=== PATIENT | female | born 1985 | race Caucasian/White ===

== ENCOUNTER 2018-02-11 21:08 | Emergency (ER) | payer OTHER ==
[~2018-02-11] VITALS: Ht 157.5 cm; Wt 94.2 kg
[~2018-02-11 21:08] MED LIST: ANTIDEPRESSANT; AUGMENTIN875 MG PO; CYMBALTA30 MG PO; FIORICET,ESG1 TABLET PO; FISH OIL SOFTG1 EACH PO; MOTRIN600 MG PO; OCELLA TABLET1 EACH PO; PERCOCET 5/31 TABLET PO; PRISTIQ50 MG PO; TOPAMAX100 MG PO; VICODIN ES 71 TABLET PO; ZOFRAN ODT4 MG PO
[2018-02-11] MEDS ORDERED: DICLOXACILLIN250 MG PO (22:19)
[2018-02-11] MEDS ORDERED: NORCO 5/3251 TABLET PO (22:19)
[2018-02-11 22:44] VITALS: BP 128/83
== END 2018-02-11 23:07 | disposition home or self-care (01) ==
LOC: EME 21:08 → EXP 21:08
DX: L03.032 Cellulitis of left toe (principal); J30.9 Allergic rhinitis, unspecified; Z91.040 Latex allergy status; Z88.1 Allergy status to other antibiotic agents; Z91.018 Allergy to other foods
CPT/HCPCS: 99281; 99283

== ENCOUNTER 2018-03-22 22:02 | Emergency (ER) | payer OTHER ==
[~2018-03-22] VITALS: Ht 157.5 cm; Wt 97.1 kg
[~2018-03-22 22:02] MED LIST changes: +DICLOXACILLIN250 MG PO; +NORCO 5/3251 TABLET PO
[2018-03-22] MEDS ORDERED: MOTRIN800 MG PO (23:16)
[2018-03-22] MEDS ORDERED: VIBRAMYCIN100 MG PO (23:16)
[2018-03-22 23:54] VITALS: BP 134/80
== END 2018-03-22 23:55 | disposition home or self-care (01) ==
LOC: EME 22:02
DX: S70.361A Insect bite (nonvenomous), right thigh, initial encounter (principal); L03.115 Cellulitis of right lower limb; W57.XXXA Bitten or stung by nonvenomous insect and other nonvenomous arthropods, initial encounter; Z88.1 Allergy status to other antibiotic agents; Z91.040 Latex allergy status; Z91.018 Allergy to other foods
CPT/HCPCS: 99281; 99285